=== PATIENT | female | born 1990 | race Caucasian/White ===

== ENCOUNTER 2019-08-17 14:36 | Emergency (ER) | payer MEDICAID ==
[~2019-08-17] VITALS: Ht 154.9 cm; Wt 54.4 kg
--- NOTE | 2019-08-17 14:55 | NUR ---
ERMD AT BEDSIDE FOR HX AND PHYSICAL Patient is AOx4, speaking in complete sentences, speech is clear. Patient is able to follow /comprehend directions. Gait is stable. No cardiovascular distress noted. Rate and rhythm are regular. No CP. No respiratory distress noted. Respirations even & unlabored with symmetrical chest rise. No adventitious sounds noted. Chief complaint: C/O WORSENING ABSCESS ON L CHEEK (UNDERNEATH L EYE), +SWELLING AND +ERYTHEMA TO THE SITE. +DISTINCT DARL/NECROTIC SKIN BREAK ATLEAST 2CM IN [place]. Patient denies Fever/Chills. No recent travel. ALLERGIC TO AMOXICILLIN. - ETOH / -recreational drug use/ NONSMOKER .
[2019-08-17] MEDS ORDERED: VANCOMYCIN IV 1,000 MG in IV DEXTROSE 5% 250 ML IV ONE (15:00)
[2019-08-17] MEDS ORDERED: IV NORMAL SALINE 1000 ML BAG IV ONE (15:00)
[2019-08-17 15:18] LABS: BASOPHILS % (AUTO) 0.3 % (0.0-2.0); EOSINOPHILS # (AUTO) 0.2 K/uL (0.0-0.7); EOSINOPHILS % (AUTO) 2.8 % (0.0-7.0); HEMATOCRIT 35.8 % (31.2-41.9); HEMOGLOBIN 12.4 g/dL (10.9-14.3); LYMPHOCYTES # (AUTO) 1.8 K/uL (20.0-40.0); MEAN CORPUSCULAR HEMOGLOBIN 30.7 uug (24.7-32.8); MEAN CORPUSCULAR HGB CONC 35 g/dL (32.3-35.6); MEAN CORPUSCULAR VOLUME 88.8 fL (75.5-95.3); MONOCYTES # (AUTO) 0.5 K/uL (2.0-10.0); NEUTROPHILS # (AUTO) 5.3 K/uL (1.8-8.9); NEUTROPHILS % (AUTO) 66.9 % (38.5-71.5); PLATELET COUNT (AUTO) 447 K/uL (179-408); RED BLOOD CELL COUNT(AUTO) 4.03 MIL/uL (3.63-4.92); WHITE BLOOD COUNT (AUTO) 7.9 K/uL (3.8-11.8)
[2019-08-17] MEDS ORDERED: VANCOMYCIN IV 200 ML ONE (15:22)
[2019-08-17 15:33] LABS: ALANINE AMINOTRANSFERASE 27 U/L (14-59); ALKALINE PHOSPHATASE 77 U/L (50-136); ASPARTATE AMINOTRANSFERASE 54 U/L (15-37); BILIRUBIN,DIRECT 0.1 mg/dL (0.0-0.2); BILIRUBIN,TOTAL 0.6 mg/dL (0.2-1.0); CARBON DIOXIDE 26 mmol/L (21-32); CHLORIDE 95 mmol/L (98-107); CREATININE 0.7 mg/dL (0.6-1.3); GLUCOSE 85 mg/dL (74-106); POTASSIUM 3.1 mmol/L (3.5-5.1); TOTAL PROTEIN, SERUM 8.1 g/dL (6.4-8.2); UREA NITROGEN, BLOOD 13 mg/dL (7-18)
[2019-08-17] MEDS ORDERED: SWABABLE VALVE TRANSFER SET EA MC ONE (15:44)
[2019-08-17] MEDS ORDERED: IOHEXOL 300MG/ML 100 ML INFUS..BTL ONE (15:44)
[2019-08-17] MEDS ORDERED: IV NORMAL SALINE 250 ML IV ONE (15:44)
--- NOTE | 2019-08-17 16:01 | NUR ---
PT PICKED UP BY MANAGER RENTAL VIA [facility]ODY Ybarra AC G20 INTACT HEPLOCK
--- NOTE | 2019-08-17 16:30 | NUR ---
PT BACK FR CT ACC BY [facility] [employer]PER[facility] RA WAITING CALL BACK FROM INSURANCE RE ADMISSION
--- NOTE | 2019-08-17 18:20 | NUR ---
call back from insurance ([employer]) states pt has two choices for transfer: [facility] vs [facility] pt declines transfer pt declines admission ERMD aware
--- NOTE | 2019-08-17 18:27 | NUR ---
Patient does not wish to proceed with medical care recommended by Dr. Jimmy marroquin ). Patient given information related to possible complications, up to and including , which could occur as a result of leaving the hospital at this time. Patient verbalizes understanding of risks involved due to leaving against medical advice. Patient has signed AMA form. iv dc, dressed
[2019-08-17 18:32] VITALS: BP 111/69
== END 2019-08-17 18:33 | disposition left against medical advice (07) ==
LOC: ER 14:36
DX: L03.211 Cellulitis of face (principal); Z88.1 Allergy status to other antibiotic agents
CPT/HCPCS: 36415; 70487; 80048; 80076; 83605; 84145; 84702; 85025; 85730; 87040 ×2; 96365; 99285; J3370; Q9967; A4663; J7030; J7050